=== PATIENT | female | born 1985 | race Two or more races ===

== ENCOUNTER 2017-08-22 22:04 | Emergency (ER) | payer OTHER ==
[~2017-08-22] VITALS: Ht 160 cm; Wt 64.4 kg
[2017-08-22 23:01] LABS: BASOPHILS # (AUTO) 0.02 x10^3/uL (0-0.1); BASOPHILS % (AUTO) 0 % (0-1); EOSINOPHILS # (AUTO) 0.06 x10^3/uL (0-0.4); EOSINOPHILS % (AUTO) 1 % (1-7); LYMPHOCYTES # (AUTO) 2.31 x10^3/uL (1-3.4); LYMPHOCYTES % (AUTO) 35 % (22-44); MD NO; MEAN CORPUSCULAR HEMOGLOBIN 30.8 pg (27.0-34.8); MEAN CORPUSCULAR HGB CONC 34.4 g/dL (32.4-35.8); MEAN CORPUSCULAR VOLUME 89.6 fL (80-100); MEAN PLATELET VOLUME 9.4 fL (7.4-10.4); MONOCYTES # (AUTO) 0.62 x10^3/uL (0.2-0.8); MONOCYTES % (AUTO) 9 % (2-9); NEUTROPHILS # (AUTO) 3.58 x10^3/uL (1.8-6.8); NEUTROPHILS % (AUTO) 54 % (42-75); PLATELET COUNT 185 x10^3/uL (130-400); RED BLOOD COUNT 4.45 x10^6/uL (3.82-5.3); RED CELL DISTRIBUTION WIDTH 13.2 % (9.6-15.2)
[2017-08-22 23:12] LABS: CHLORIDE 110 mmol/L (98-107)
[2017-08-22 23:13] LABS: ALBUMIN 2.8 g/dL (3.4-5.0); ANION GAP 7 mmol/L (5-15); CALCIUM 9.1 mg/dL (8.5-10.1); CREATININE 0.55 mg/dL (0.55-1.02)
[2017-08-22 23:24] LABS: CULTURE INDICATED? YES; MICROSCOPIC INDICATED
[2017-08-22] MEDS ORDERED: PREN1TAB60 PO (23:34)
[2017-08-23 01:02] VITALS: BP 108/68
== END 2017-08-23 01:05 | disposition home or self-care (01) ==
LOC: ED 23:43
DX: O20.0 Threatened abortion (principal); O23.12 Infections of bladder in pregnancy, second trimester; Z3A.18 18 weeks gestation of pregnancy
CPT/HCPCS: 36415; 76805; 80048; 81001; 82040; 84702; 85025; 86901; 87077; 87086; 99285

== ENCOUNTER 2018-01-19 23:32 | Outpatient (CLI) | payer OTHER ==
[~2018-01-19 23:32] MED LIST: PREN1TAB60 PO
[2018-01-21] MEDS ORDERED: IBUP-1222 PO (15:57)
== END 2018-01-20 01:24 | disposition home or self-care (01) ==
LOC: LDOP 23:32
PROVIDERS: ATTEND Student in an Organized Health Care Education/Training Program
DX: O46.93 Antepartum hemorrhage, unspecified, third trimester (principal); O62.9 Abnormality of forces of labor, unspecified; O42.92 Full-term premature rupture of membranes, unspecified as to length of time between rupture and onset of labor; Z3A.40 40 weeks gestation of pregnancy
CPT/HCPCS: 59025; 99211; G0463

== ENCOUNTER 2018-01-20 17:33 | Inpatient (IN) | payer OTHER ==
[~2018-01-20] VITALS: Ht 160 cm; Wt 72.7 kg
[~2018-01-20 17:33] MED LIST changes: +MISOPROSTOL 200 MCG TABLET ONE; +OXYTOCIN 10 UNITS/ML, 1ML ONE
[2018-01-20 17:54] VITALS: BP 147/94
[2018-01-20] MEDS ORDERED: D5%-LACTATED RINGERS 1,000 ML IV SCH (18:43)
[2018-01-20] MEDS ORDERED: OXYTOCIN 30U/ 0.9% NaCL 500ML 500 ML IV ONE (18:43)
[2018-01-20] MEDS ORDERED: LACTATED RINGERS 1,000 ML IV SCH ×2 (18:43→18:47)
[2018-01-20] MEDS ORDERED: FENTANYL/BUPIV./NS/PF 250 ML EPIDCONT SCH (18:47)
[2018-01-20] MEDS ORDERED: FENTANYL PF 100 MCG/2ML ONE (18:59)
[2018-01-20] MEDS ORDERED: LACTATED RINGERS 1,000 ML IVBOLUS PRN (19:00)
[2018-01-20] MEDS ORDERED: FENTANYL PF 100 MCG/2ML IVPush PRN (19:00)
[2018-01-20] MEDS ORDERED: FENTANYL PF 100 MCG/2ML IV PRN (19:00)
[2018-01-20 19:06] LABS: BASOPHILS # (AUTO) 0.03 x10^3/uL (0-0.1); BASOPHILS % (AUTO) 0 % (0-1); EOSINOPHILS # (AUTO) 0.03 x10^3/uL (0-0.4); EOSINOPHILS % (AUTO) 0 % (1-7); LYMPHOCYTES # (AUTO) 4.26 x10^3/uL (1-3.4); LYMPHOCYTES % (AUTO) 45 % (22-44); MD NO; MEAN CORPUSCULAR HEMOGLOBIN 30.3 pg (27.0-34.8); MEAN CORPUSCULAR HGB CONC 33.7 g/dL (32.4-35.8); MEAN CORPUSCULAR VOLUME 89.9 fL (80-100); MEAN PLATELET VOLUME 12.7 fL (7.4-10.4); MONOCYTES # (AUTO) 0.73 x10^3/uL (0.2-0.8); MONOCYTES % (AUTO) 8 % (2-9); NEUTROPHILS # (AUTO) 4.48 x10^3/uL (1.8-6.8); NEUTROPHILS % (AUTO) 47 % (42-75); PLATELET COUNT 126 x10^3/uL (130-400); RED BLOOD COUNT 4.27 x10^6/uL (3.82-5.3); RED CELL DISTRIBUTION WIDTH 14.1 % (9.6-15.2)
[2018-01-20] MEDS ORDERED: NEWBORN KIT ONE (19:16)
[2018-01-20] MEDS ORDERED: OXYcodone/APAP 5/325MG TABLET ONE (19:17)
[2018-01-20] MEDS ORDERED: IBUPROFEN 600 MG TABLET ONE (19:17)
[2018-01-20] MEDS ORDERED: OXYTOCIN 30U/ 0.9% NaCL 500ML 500 ML IV SCH (19:22)
[2018-01-20] MEDS ORDERED: HYDROcodone/APAP 5/325 TABLET PO PRN (19:30)
[2018-01-20] MEDS ORDERED: DOCUSATE 100 MG CAPSULE PO PRN (19:30)
[2018-01-20] MEDS ORDERED: METOCLOPRAMIDE 5 MG/ML, 2ML IV PRN (19:30)
[2018-01-20] MEDS ORDERED: ACETAMINOPHEN 325 MG TABLET PO PRN (19:30)
[2018-01-20] MEDS ORDERED: IBUPROFEN 600 MG TABLET PO PRN (19:30)
[2018-01-20] MEDS ORDERED: CALCIUM CARBONATE 500 MG TAB.CHEW PO PRN (19:30)
[2018-01-20] MEDS ORDERED: CARBOPROST TROMETHAMINE 250 MCG/ML, 1ML IM PRN (19:30)
[2018-01-20] MEDS ORDERED: ONDANSETRON 2MG/ML, 2ML IV PRN (19:30)
[2018-01-20] MEDS ORDERED: METHYLERGONOVINE 0.2 MG/ML IM PRN (19:30)
[2018-01-20 21:30] VITALS: BP 135/82
[2018-01-20 22:30] VITALS: BP 130/78
[2018-01-21] MEDS: HYDROcodone/APAP 5/325 TABLET PO PRN ×3 (00:03→11:47)
[2018-01-21 01:11] VITALS: BP 133/86
[2018-01-21 04:02] VITALS: BP 133/87
[2018-01-21 06:17] LABS: BASOPHILS # (AUTO) 0.02 x10^3/uL (0-0.1); BASOPHILS % (AUTO) 0 % (0-1); EOSINOPHILS # (AUTO) 0.03 x10^3/uL (0-0.4); EOSINOPHILS % (AUTO) 0 % (1-7); LYMPHOCYTES # (AUTO) 2.17 x10^3/uL (1-3.4); LYMPHOCYTES % (AUTO) 26 % (22-44); MD SCAN; MEAN CORPUSCULAR HEMOGLOBIN 30.3 pg (27.0-34.8); MEAN CORPUSCULAR HGB CONC 33.5 g/dL (32.4-35.8); MEAN CORPUSCULAR VOLUME 90.4 fL (80-100); MEAN PLATELET VOLUME 13.1 fL (7.4-10.4); MONOCYTES # (AUTO) 0.52 x10^3/uL (0.2-0.8); MONOCYTES % (AUTO) 6 % (2-9); NEUTROPHILS # (AUTO) 5.69 x10^3/uL (1.8-6.8); NEUTROPHILS % (AUTO) 67 % (42-75); PLATELET COUNT 122 x10^3/uL (130-400); RED BLOOD COUNT 4.01 x10^6/uL (3.82-5.3); RED CELL DISTRIBUTION WIDTH 13.6 % (9.6-15.2)
[2018-01-21 07:55] VITALS: BP 131/74
[2018-01-21] MEDS ORDERED: PRENATAL VIT/IRON/FA 1 EACH TABLET PO SCH (09:00)
[2018-01-21 11:59] VITALS: BP 128/84
[2018-01-21] MEDS ORDERED: IBUP-1222 PO (15:57)
[2018-01-21 16:00] VITALS: BP 122/78
== END 2018-01-21 19:12 | disposition home or self-care (01) | DRG 775 ==
LOC: LDOP 17:33 → LDIP 18:56 → 2NW 21:30
PROVIDERS: ADMIT Student in an Organized Health Care Education/Training Program; ATTEND Student in an Organized Health Care Education/Training Program
PROC: 10E0XZZ Delivery of Products of Conception, External Approach (ICD-10-PCS; principal; 2018-01-20)
PROC: 10907ZC Drainage of Amniotic Fluid, Therapeutic from Products of Conception, Via Natural or Artificial Opening (ICD-10-PCS; 2018-01-20)
DX: O69.81X0 Labor and delivery complicated by cord around neck, without compression, not applicable or unspecified (principal); Z37.0 Single live birth; Z3A.40 40 weeks gestation of pregnancy
CPT/HCPCS: 36415; 85025; 86850; 86900; 89060; J2590; Q0114

== ENCOUNTER 2020-12-04 08:53 | Emergency (ER) | payer OTHER ==
[~2020-12-04] VITALS: Ht 160 cm; Wt 63.7 kg
[~2020-12-04 08:53] MED LIST changes: +IBUP-1222 PO; -MISOPROSTOL 200 MCG TABLET ONE; -OXYTOCIN 10 UNITS/ML, 1ML ONE
--- NOTE | 2020-12-04 09:23 | NUR ---
PT AMBULATORY TO ROOM 34 W/ C/O ANGELA STARTED 6 DAYS AGO. PT STATES IT STARTED IN HER NECK AND RADIATED TO THE R SIDE OF HER HEAD. PT STATES SHE FEELS THE PAIN PULSE. PT DENIES ANY HX MIGRAINE ANGELA IN THE PAST. PT STATES NAUSEA BUT NO EMESIS. PT RESTING ON GURNEY. NADN. MONITORS APPLIED. VSS. WARM BLANKET PROVIDED. CALL LIGHT IN REACH. PIV INITIATED.
[2020-12-04] MEDS ORDERED: KETOROLAC 30 MG/1 ML IM ONE (09:30)
[2020-12-04] MEDS ORDERED: LIDOCAINE 2%, 20ML SQ ONE (09:30)
[2020-12-04] MEDS ORDERED: BUPIVACAINE/PF-EPI 0.25% 1:200K SQ ONE (09:30)
[2020-12-04] MEDS ORDERED: BUPIVACAINE 0.25% ONE (09:31)
[2020-12-04] MEDS ORDERED: LIDOCAINE-MPF 2% ,5ML ONE (09:31)
[2020-12-04] MEDS ORDERED: KETOROLAC 30 MG/1 ML ONE (09:31)
--- NOTE | 2020-12-04 09:38 | NUR ---
BLOCK PERFORMED BY MAURY BALDERAS FOR ANGELA. PT NAINA WELL. PT NOW RESTING ON HIMA.
[2020-12-04] MEDS ORDERED: KETOROLAC 30 MG/1 ML IVPush ONE (10:00)
[2020-12-04 10:12] VITALS: BP 122/74
--- NOTE | 2020-12-04 10:12 | NUR ---
PT RESTING ON GURNEY. NADN. ROMANO.
== END 2020-12-04 10:57 | disposition home or self-care (01) ==
LOC: ED 09:10
DX: G44.219 Episodic tension-type headache, not intractable (principal); M54.2 Cervicalgia
CPT/HCPCS: 64405; 96374; 99284; J1885